=== PATIENT | male | born 1985 | race Caucasian/White ===

== ENCOUNTER 2018-03-14 10:50 | Emergency (ER) | payer SELFPAY ==
[~2018-03-14] VITALS: Ht 182.9 cm; Wt 59.0 kg
[2018-03-14 10:52] VITALS: BP 122/73; PULSE 101; RESP 16; TEMP 98.5; O2SAT 94
--- NOTE | 2018-03-14 11:42 | PD ---
HPI Chief Complaint: Laceration/Skin Injury Time Seen by Provider: 11:02 Travel History International Travel<30 days: No Contact w/Intl Traveler<30days: No Traveled to known affect area: No History of Present Illness HPI This is a 32-year-old male with a laceration to the right forearm. He reports 1 hour prior to arrival he the arm on a metal trailer. No paresthesia or weakness of the extremity. His tetanus immunizations up-to-date. He reports mild pain at the site of laceration. Symptom severity is moderate. No aggravating or alleviating factors. [facility] Past Medical History Medical History: Denies Significant Hx Past Surgical History Abdominal Surgery: Yes (HERNIA) Appendectomy: Yes Social History Alcohol Use: Yes (6PACK/DAY) Tobacco Use: Yes (1PPD) Substance Use: No Allergies-Medications (Allergen,Severity, Reaction): Coded Allergies: No Known Allergies (Unverified , 03/14/18) Reported Meds & Prescriptions Reported Meds & Active Scripts Active No Active Prescriptions or Reported Medications Review of Systems Except as stated in HPI: all other systems reviewed are Neg Physical Exam Narrative GENERAL: Alert and well-appearing 32-year-old male SKIN: Warm and dry. HEAD: Normocephalic. EYES: No injection or drainage. NECK: Supple MUSCULOSKELETAL: No cyanosis, or edema. RUE: 4 centimeter laceration to the lateral aspect of the forearm. No vascular tendon injury identified. No active bleeding. Normal range of motion of the wrist and fingers. Normal sensation distally. Brisk cap refill Data Data Last Documented VS Vital Signs Date Time Temp Pulse Resp B/P (MAP) Pulse Ox O2 Delivery O2 Flow Rate FiO2 03/14/18 10:52 98.5 101 16 122/73 (89) 94 MDM Medical Decision Making Medical Screen Exam Complete: Yes Emergency Medical Condition: Yes Differential Diagnosis Laceration, abrasion, tendon injury Narrative Course 32-year-old male with a laceration to the right upper extremity. No tendon or vascular injury suspected. Laceration repair performed. Patient tolerated procedure well. Procedures Procedure Narrative LACERATION LOCATION: Right forearm LENGTH: 4 cm NUMBER OF STITCHES/JOHNNIE: 5 REPAIR: The area of the laceration was prepped with Betadine and sterilely draped. The laceration was infiltrated with 1% lidocaine with epi. The wound was copiously irrigated and explored without evidence of foreign body, tendon injury or neurovascular injury. The wound was closed using 3-0 Ethilon. This was a single layer repair. A sterile dressing was applied. The patient was advised to keep the dressing clean and dry. Patient tolerated the procedure well. Diagnosis Primary Impression: Laceration of right forearm Qualified Codes: S51.811A - Laceration without foreign body of right forearm, initial encounter Referrals: Primary Care Physician Additional Instructions: Sutures need to be removed in 7-10 days. Do not submerge the wound in water. Scripts No Active Prescriptions or Reported Meds Disposition: 01 DISCHARGE HOME Condition: Stable Amber Patton March 14, 2018 11:42
== END 2018-03-14 12:09 | disposition home or self-care (01) ==
LOC: PHEFT 10:50
DX: S51.811A Laceration without foreign body of right forearm, initial encounter (principal); W22.8XXA Striking against or struck by other objects, initial encounter; F17.200 Nicotine dependence, unspecified, uncomplicated
CPT/HCPCS: 12002

== ENCOUNTER 2018-04-07 17:39 | Emergency (ER) | payer SELFPAY ==
[~2018-04-07] VITALS: Ht 182.9 cm; Wt 65.0 kg
[2018-04-07 17:47] VITALS: BP 102/53; PULSE 60; RESP 18; TEMP 98.2; O2SAT 99
[2018-04-07] MEDS ORDERED: IBUP1TAB7 PO (18:16)
[2018-04-07] MEDS ORDERED: BACT800T5 PO (18:16)
--- NOTE | 2018-04-07 18:16 | PD ---
HPI Chief Complaint: Skin Problem Time Seen by Provider: 18:08 Travel History International Travel<30 days: No Contact w/Intl Traveler<30days: No Traveled to known affect area: No History of Present Illness HPI 32-year-old male presents to the emergency department with complaint of pain, redness, swelling to his right hip area after he clipped himself with a hedge clipper about a week ago. Reports being up-to-date on his tetanus vaccination. Denies fever, vomiting. Rates pain 8/10. Has not taken any medications or try any treatments to alleviate his symptoms. Aggravated with palpation and pressure to the area. No known relieving factors. No primary care provider. No known allergies. Denies significant past medical history. Has no other medical complaints. No other modifying factors or associated signs and symptoms. PFSH Past Surgical History Abdominal Surgery: Yes (HERNIA) Appendectomy: Yes Social History Alcohol Use: Yes (6PACK/DAY) Tobacco Use: Yes (1PPD) Substance Use: No Allergies-Medications (Allergen,Severity, Reaction): Coded Allergies: No Known Allergies (Unverified , 03/14/18) Reported Meds & Prescriptions Reported Meds & Active Scripts Active Ibuprofen 800 Mg Tab 800 Mg PO Q6HR PRN Bactrim DS (Sulfamethoxazole-Trimethoprim) 800-160 Mg Tab 1 Tab PO BID 10 Days Review of Systems Except as stated in HPI: all other systems reviewed are Neg Physical Exam Narrative GENERAL: Well-nourished, well-developed patient, in no acute distress ; afebrile, nontoxic-appearing SKIN: There is an indurated area to the right lateral upper thigh which measures about 1 cm in diameter that is surrounded by an area of erythema and warmth to touch. It is nonfluctuant but there is no pointing or drainage; there is a small scabbed area in the middle of the erythema; no lymphangitis HEAD: Atraumatic. Normocephalic. EYES: Pupils equal and round. No scleral icterus. No injection or drainage. ENT: Mucosa pink and moist. Airway patent. NECK: Trachea midline. CARDIOVASCULAR: Regular rate. RESPIRATORY: No accessory muscle use. GASTROINTESTINAL: Flat MUSCULOSKELETAL: No obvious deformities. No clubbing. No cyanosis. No edema. NEUROLOGICAL: Awake and alert. Oriented 3. No obvious cranial nerve deficits. Motor grossly within normal limits. Normal speech. PSYCHIATRIC: Appropriate mood and affect; insight and judgment normal. Data Data Last Documented VS Vital Signs Date Time Temp Pulse Resp B/P (MAP) Pulse Ox O2 Delivery O2 Flow Rate FiO2 04/07/18 17:47 98.2 60 18 102/53 (69) 99 Orders Orders Ed Discharge Order (04/07/18 18:16) MDM Medical Decision Making Medical Screen Exam Complete: Yes Emergency Medical Condition: Yes Medical Record Reviewed: Yes Differential Diagnosis Cellulitis, abscess, wound infection Narrative Course 32-year-old male with cellulitis of his right lateral upper thigh. He is afebrile and nontoxic-appearing. There is a small indurated area that is palpable, but is nonfluctuant and without pointing or drainage. I discussed antibiotic therapy and if an abscess develops he would need to return for incision and drainage. Patient verbalized understanding and agreement. Bactrim and ibuprofen prescribed for home. Instructed patient to follow up with primary care provider. Patient verbalizes understanding and agreement with treatment plan. Patient is medically cleared and stable for discharge. Discussed reasons to return to the emergency department. Patient agrees with treatment plan. The patients vital signs are stable and the patient is stable for outpatient follow-up and treatment. Patient discharged home, stable and in no acute distress. Diagnosis Primary Impression: Cellulitis of right thigh Referrals: [facility] Primary Care Physician Patient Instructions: Cellulitis (ED), General Instructions Additional Instructions: Complete full course of antibiotics Warm compresses to the affected area Keep area clean and dry Ibuprofen or Tylenol as directed and as needed for pain and inflammation Follow-up with primary care provider Return to emergency department immediately with worsening of symptoms Med/Other Pt SpecificInfo: Prescription(s) given Scripts Ibuprofen (Ibuprofen) 800 Mg Tab 800 MG PO Q6HR Y for PAIN, #20 TAB 0 Refills Prov: Nithya Salamanca 04/07/18 Sulfamethoxazole-Trimethoprim (Bactrim DS) 800-160 Mg Tab 1 TAB PO BID for Infection for 10 Days, #20 TAB 0 Refills Prov: Nithya Salamanca 04/07/18 Disposition: 01 DISCHARGE HOME Condition: Stable Nithya Salamanca Apr 07, 2018 18:16
== END 2018-04-07 18:29 | disposition home or self-care (01) ==
LOC: NEPK 17:39
DX: L03.115 Cellulitis of right lower limb (principal); F17.200 Nicotine dependence, unspecified, uncomplicated
CPT/HCPCS: 99283